=== PATIENT | male | born 1955 | race Caucasian/White ===

== ENCOUNTER 2022-09-10 11:47 | Emergency (ER) | payer MEDICARE, OTHER ==
[~2022-09-10] VITALS: Ht 175.3 cm; Wt 72.7 kg
[2022-09-10 13:40] VITALS: BP 131/67; PULSE 59; TEMP 98.1
== END 2022-09-10 13:40 | disposition home or self-care (01) ==
LOC: COL.ER 11:47
DX: J90 Pleural effusion, not elsewhere classified (principal); N18.6 End stage renal disease; Z99.2 Dependence on renal dialysis

== ENCOUNTER 2023-05-10 14:01 | Emergency (ER) | payer MEDICARE, OTHER ==
[~2023-05-10] VITALS: Ht 172.7 cm; Wt 77.3 kg
[2023-05-10 15:25] LABS: BASO % 0.2 % (0.0-2.0); EOS % 0.6 % (0.0-4.0); GRAN # 3.9 K/mm3 (1.4-6.5); GRAN % 71.4 % (42.2-75.2); HEMATOCRIT 38.9 % (42.0-52.0); LYMPH % 18.3 % (20.0-51.0); MEAN CELL VOLUME 98 fl (80.0-100.0); MEAN CORPUSCULAR HEMOGLOBIN 30 pg (27-31); MEAN CORPUSCULAR HGB CONC 31 g/dl (33.0-37.0); MEAN PLATELET VOLUME 10.2 fl (7.4-10.4); MONO # 0.5 K/mm3 (0.1-0.6); MONO % 9.3 % (1.7-9.3); PLATELET COUNT 157 K/mm3 (130-400); RED BLOOD COUNT 3.99 M/mm3 (4.20-5.60); REDCELL DISTRIBUTION WIDTH-CV 19.4 % (11.5-14.5)
[2023-05-10 16:37] LABS: ALBUMIN 2.8 gm/dL (3.4-4.8); BILIRUBIN,TOTAL 0.6 mg/dL (0.2-1.2); CALCIUM 8.9 mg/dL (8.4-10.2); CREATININE, serum 5.02 mg/dL (0.72-1.25); POTASSIUM 4.2 mmol/L (3.5-4.5); TOTAL PROTEIN 6.2 gm/dL (6.2-8.1)
[2023-05-10 17:42] VITALS: BP 145/83; PULSE 72; TEMP 98.1
[2023-05-14] MEDS ORDERED: ZYLOPRIM 100MG100 MG PO (15:43)
[2023-05-14] MEDS ORDERED: LIPITOR 40MG TA40 MG PO (15:43)
[2023-05-14] MEDS ORDERED: ZOLOFT 50MG50 MG PO (15:46)
[2023-05-14] MEDS ORDERED: LANTUS100 U/ML SQ (15:47)
[2023-05-14] MEDS ORDERED: RENVELA800 MG PO (15:47)
[2023-05-14] MEDS ORDERED: SENNA-LAX8.6 MG PO (15:48)
[2023-05-14] MEDS ORDERED: VENTOLIN0.09 MG IH (15:52)
[2023-05-14] MEDS ORDERED: COLACE 100100 MG/CAP PO (15:52)
[2023-05-14] MEDS ORDERED: TOPROL XL 25MG25 MG PO (15:54)
[2023-05-14] MEDS ORDERED: ATARAX 25MG25 MG/TAB PO (15:55)
[2023-05-14] MEDS ORDERED: PULMICORT0.25 MG/2 IH (15:57)
[2023-05-14] MEDS ORDERED: INSULIN LI100 UNIT/1 SQ (15:59)
[2023-05-14] MEDS ORDERED: HYDROCORTISON28.4 GM TOP (16:00)
[2023-05-14] MEDS ORDERED: ALBUTEROL0.83 MG/ML IH (16:02)
[2023-05-14] MEDS ORDERED: CORDARONE200 MG/TAB PO (16:03)
[2023-05-14] MEDS ORDERED: TYLENOL 500MG500 MG PO ×3 (16:06→18:48)
[2023-05-14] MEDS ORDERED: MOTRIN 200200 MG/TAB PO (16:06)
[2023-05-14] MEDS ORDERED: NEURONTIN100 MG/CAP PO ×2 (16:09→16:10)
== END 2023-05-10 17:41 | disposition home or self-care (01) ==
LOC: COL.ER 14:01
PROVIDERS: Physician Assistant
DX: R41.0 Disorientation, unspecified (principal); N18.6 End stage renal disease; Z99.2 Dependence on renal dialysis; Z79.899 Other long term (current) drug therapy

== ENCOUNTER 2023-05-11 05:50 | Emergency (ER) | payer MEDICARE, OTHER ==
[~2023-05-11] VITALS: Ht 170.2 cm; Wt 69.3 kg
[2023-05-11 05:52] VITALS: TEMP 97.7
[2023-05-11 08:16] LABS: GLUCOSE,CSF 82 mg/dL (40-70)
[2023-05-11 08:31] LABS: CSF APPEARANCE CLEAR; CSF COLOR COLORLESS; CSF RBC < 1 /mm3 (0-0)
[2023-05-11 08:41] LABS: CSF MONONUCLEAR 100 % (70-100); CSF POLYMORPHONUCLEAR 0 % (0-6)
[2023-05-11 09:15] VITALS: BP 160/99; PULSE 72
[2023-05-14] MEDS ORDERED: LIPITOR 40MG TA40 MG PO (15:43)
[2023-05-14] MEDS ORDERED: ZYLOPRIM 100MG100 MG PO (15:43)
[2023-05-14] MEDS ORDERED: ZOLOFT 50MG50 MG PO (15:46)
[2023-05-14] MEDS ORDERED: LANTUS100 U/ML SQ (15:47)
[2023-05-14] MEDS ORDERED: RENVELA800 MG PO (15:47)
[2023-05-14] MEDS ORDERED: SENNA-LAX8.6 MG PO (15:48)
[2023-05-14] MEDS ORDERED: VENTOLIN0.09 MG IH (15:52)
[2023-05-14] MEDS ORDERED: COLACE 100100 MG/CAP PO (15:52)
[2023-05-14] MEDS ORDERED: TOPROL XL 25MG25 MG PO (15:54)
[2023-05-14] MEDS ORDERED: ATARAX 25MG25 MG/TAB PO (15:55)
[2023-05-14] MEDS ORDERED: PULMICORT0.25 MG/2 IH (15:57)
[2023-05-14] MEDS ORDERED: INSULIN LI100 UNIT/1 SQ (15:59)
[2023-05-14] MEDS ORDERED: HYDROCORTISON28.4 GM TOP (16:00)
[2023-05-14] MEDS ORDERED: ALBUTEROL0.83 MG/ML IH (16:02)
[2023-05-14] MEDS ORDERED: CORDARONE200 MG/TAB PO (16:03)
[2023-05-14] MEDS ORDERED: MOTRIN 200200 MG/TAB PO (16:06)
[2023-05-14] MEDS ORDERED: TYLENOL 500MG500 MG PO ×3 (16:06→18:48)
[2023-05-14] MEDS ORDERED: NEURONTIN100 MG/CAP PO ×2 (16:09→16:10)
== END 2023-05-11 09:15 | disposition home or self-care (01) ==
LOC: COL.ER 05:50
PROVIDERS: Personal Emergency Response Attendant
DX: S61.412A Laceration without foreign body of left hand, initial encounter (principal); S61.411A Laceration without foreign body of right hand, initial encounter; S80.01XA Contusion of right knee, initial encounter; M46.46 Discitis, unspecified, lumbar region; R41.0 Disorientation, unspecified; E11.22 Type 2 diabetes mellitus with diabetic chronic kidney disease; N18.6 End stage renal disease; Z99.2 Dependence on renal dialysis; Z79.01 Long term (current) use of anticoagulants; W06.XXXA Fall from bed, initial encounter; Y92.129 Unspecified place in nursing home as the place of occurrence of the external cause

== ENCOUNTER 2023-06-04 13:05 | Emergency (ER) | payer MEDICARE, OTHER ==
[~2023-06-04 13:05] MED LIST: ALBUTEROL0.83 MG/ML IH; ATARAX 25MG25 MG/TAB PO; COLACE 100100 MG/CAP PO; CORDARONE200 MG/TAB PO; HYDROCORTISON28.4 GM TOP; INSULIN LI100 UNIT/1 SQ; LANTUS100 U/ML SQ; LIPITOR 40MG TA40 MG PO; MOTRIN 200200 MG/TAB PO; NEURONTIN100 MG/CAP PO; PULMICORT0.25 MG/2 IH; RENVELA800 MG PO; SENNA-LAX8.6 MG PO; TOPROL XL 25MG25 MG PO; TYLENOL 500MG500 MG PO; VENTOLIN0.09 MG IH; ZOLOFT 50MG50 MG PO; ZYLOPRIM 100MG100 MG PO
[2023-06-04 14:51] LABS: BASO % 0.4 % (0.0-2.0); EOS # 0.1 K/mm3 (0.0-0.7); GRAN # 4.8 K/mm3 (1.4-6.5); HEMATOCRIT 30.3 % (42.0-52.0); HEMOGLOBIN 9.7 g/dl (13.5-18.0); LYMPH # 1.4 K/mm3 (1.2-3.4); LYMPH % 20.8 % (20.0-51.0); MEAN CELL VOLUME 92 fl (80.0-100.0); MEAN CORPUSCULAR HEMOGLOBIN 30 pg (27-31); MEAN CORPUSCULAR HGB CONC 32 g/dl (33.0-37.0); MEAN PLATELET VOLUME 9.7 fl (7.4-10.4); MONO # 0.5 K/mm3 (0.1-0.6); MONO % 7.5 % (1.7-9.3); PLATELET COUNT 147 K/mm3 (130-400); RED BLOOD COUNT 3.28 M/mm3 (4.20-5.60); REDCELL DISTRIBUTION WIDTH-CV 18.3 % (11.5-14.5)
[2023-06-04 15:13] LABS: ALBUMIN 2.6 gm/dL (3.4-4.8); BILIRUBIN,TOTAL 0.3 mg/dL (0.2-1.2); CREATININE, serum 3.89 mg/dL (0.72-1.25); POTASSIUM 4.6 mmol/L (3.5-4.5); TOTAL PROTEIN 5.3 gm/dL (6.2-8.1)
[2023-06-04 17:00] VITALS: BP 172/88; PULSE 60; TEMP 98
== END 2023-06-04 17:53 | disposition home or self-care (01) ==
LOC: COL.ER 13:05
PROVIDERS: Nurse Practitioner
DX: E11.22 Type 2 diabetes mellitus with diabetic chronic kidney disease (principal); N18.6 End stage renal disease; R79.89 Other specified abnormal findings of blood chemistry; R09.81 Nasal congestion; Z99.2 Dependence on renal dialysis; Z99.81 Dependence on supplemental oxygen; Z79.4 Long term (current) use of insulin

== ENCOUNTER 2023-09-08 12:45 | Outpatient (RCR) | payer MEDICARE, OTHER | END 2023-09-09 | LOC: WSPT | DX: M46.46 Discitis, unspecified, lumbar region (principal); M25.512 Pain in left shoulder ==

== ENCOUNTER 2023-10-04 13:30 | Outpatient (RCR) | payer MEDICARE, OTHER | END 2023-10-09 | LOC: WSC | DX: M46.46 Discitis, unspecified, lumbar region (principal) ==